=== PATIENT | male | born 1945 ===

== ENCOUNTER 2019-03-20 12:10 | Emergency (ER) | payer MEDICARE, MEDICAID ==
[~2019-03-20] VITALS: Ht 172.7 cm; Wt 51.8 kg
[2019-03-20] MEDS ORDERED: MEMA5 PO (12:26)
[2019-03-20] MEDS ORDERED: MULT1CAP32 PO (12:26)
[2019-03-20] MEDS ORDERED: ASPI81TA39 PO (12:26)
[2019-03-20 14:12] VITALS: BP 119/74
== END 2019-03-20 14:14 | disposition home or self-care (01) ==
LOC: EMS 12:17
DX: S80.821A Blister (nonthermal), right lower leg, initial encounter (principal); S10.82XA Blister (nonthermal) of other specified part of neck, initial encounter; L12.0 Bullous pemphigoid; K21.9 Gastro-esophageal reflux disease without esophagitis; F41.9 Anxiety disorder, unspecified; F03.90 Unspecified dementia, unspecified severity, without behavioral disturbance, psychotic disturbance, mood disturbance, and anxiety; Z86.73 Personal history of transient ischemic attack (TIA), and cerebral infarction without residual deficits; Z79.899 Other long term (current) drug therapy; X58.XXXA Exposure to other specified factors, initial encounter; Y93.89 Activity, other specified; Y92.89 Other specified places as the place of occurrence of the external cause; Y99.8 Other external cause status